=== PATIENT | male | born 1970 | race Caucasian/White ===

== ENCOUNTER 2019-10-30 09:08 | Emergency (ER) | payer BC ==
--- NOTE | 2019-10-30 09:47 | EDM.PDOC ---
ED HPI GENERAL MEDICAL PROBLEM - General Stated Complaint: CHILLS, FEVER Time Seen by Provider: 10/30/19 09:30 Source of Information: Reports: Patient History Limitations: Reports: No Limitations - History of Present Illness INITIAL COMMENTS - FREE TEXT/NARRATIVE: pt comes in ambulatory with c/o dizziness, nausea, chills fever, and gen weakness started this morning after he went golfing, pt report diarrhea this morning and a single episode of emesis, pt denies recent travel or known sick contact, pt report discomfort at left knee and right groin after he finished golfing this morning, pt denies any other associated sx or medical concerns. - Related Data Allergies Allergy/AdvReac Type Severity Reaction Status Date / Time No Known Allergies Allergy Verified 10/30/19 09:24 Home Meds: Home Meds NK [No Known Home Meds] 10/30/19 [History] Past Medical History - Past Surgical History Musculoskeletal Surgical History: Reports: Shoulder Surgery Social & Family History - Family History Family Medical History: Noncontributory - Caffeine Use Caffeine Use: Reports: Coffee, Soda ED ROS GENERAL - Review of Systems Review Of Systems: See Below Constitutional: Reports: Fever, Chills, Fatigue HEENT: Reports: No Symptoms Respiratory: Reports: No Symptoms Cardiovascular: Reports: No Symptoms GI/Abdominal: Reports: Diarrhea, Nausea, Vomiting : Reports: No Symptoms Musculoskeletal: Reports: Back Pain, Joint Pain Skin: Reports: No Symptoms Neurological: Reports: No Symptoms Psychiatric: Reports: No Symptoms ED EXAM, GENERAL - Physical Exam Exam: See Below Exam Limited By: No Limitations General Appearance: Mild Distress Eye Exam: Bilateral Eye: Normal Inspection Ears: Normal External Exam Nose: Normal Inspection, Normal Mucosa Throat/Mouth: Normal Inspection Head: Atraumatic, Normocephalic Neck: Normal Inspection, Supple, Non-Tender Respiratory/Chest: No Respiratory Distress Cardiovascular: Normal Peripheral Pulses, Regular Rate, Rhythm, No Murmur GI/Abdominal: Normal Bowel Sounds, Soft, Non-Tender (Male) Exam: No Hernia, Normal Inspection Back Exam: Normal Inspection Extremities: Normal Inspection, Other (pt has ) Neurological: Alert, Oriented, CN II-XII Intact Skin Exam: Warm, Dry Course - Vital Signs Text/Narrative:: lab reults were explained to pt, pt has CBC at 17 k , but no over signs of infection, he has very mild erythema over the dorsom of right foot and toes, no induration no warmth or other signs of cellulitis , rest of labs are WNL and covid test is neg. pt feels fine after fluids and zofran , ambulatory and feels almost asymptomatic and asking when he can go back to play golf. pt likly has viral illness , supportive mng, rest were recommended i did ask him to follow with his PCP in 2 days for re-check and repeat CBC . Last Recorded V/S: Last Vital Signs Temp 37.3 C 10/30/19 09:08 Pulse 101 H 10/30/19 09:08 Resp 16 10/30/19 09:08 BP 127/73 10/30/19 09:08 Pulse Ox 99 10/30/19 09:08 - Orders/Labs/Meds Orders: Active Orders 24 hr Category Date Time Status Sodium Chloride 0.9% [Normal Saline] 1,000 ml Med 10/30/19 09:50 Active IV .BOLUS Medication Orders Sodium Chloride (Normal Saline) 1,000 mls @ 999 drops/hr IV .BOLUS ONE Stop: 10/31/19 00:50 Last Admin: 10/30/19 10:25 Dose: 999 drops/hr Documented by: ALEXANDER Labs: Laboratory Tests 10/30/19 10/30/19 10/30/19 Range/Units 09:30 09:30 09:32 WBC 17.4 H (4.5-12.0) X10-3/uL RBC 4.78 (4.30-5.75) x10(6)uL Hgb 13.3 L (13.5-17.8) g/dL Hct 40.6 (30.0-51.3) % MCV 84.9 (80-96) fL MCH 27.9 (27.7-33.6) pg MCHC 32.9 (32.2-35.4) g/dL RDW 14.3 (11.5-15.5) % Plt Count 226 (125-369) X10(3)uL Sodium 138 (135-145) mmol/L Potassium 4.2 (3.5-5.3) mmol/L Chloride 103 (100-110) mmol/L Carbon Dioxide 28 (21-32) mmol/L BUN 20 H (7-18) mg/dL Creatinine 1.3 (0.70-1.30) mg/dL Est Cr Clr Drug Dosing 69.49 mL/min Estimated GFR (MDRD) 59 L (>60) BUN/Creatinine Ratio 15.4 (9-20) Glucose 104 (80-116) mg/dL Calcium 8.5 L (8.6-10.2) mg/dL Total Bilirubin 0.5 (0.1-1.3) mg/dL AST 23 D (5-25) IU/L ALT 29 (12-36) U/L Alkaline Phosphatase 62 (56-112) IU/L Total Protein 7.0 (6.0-8.0) g/dL Albumin 3.8 (3.5-5.2) g/dL Globulin 3.2 g/dL Albumin/Globulin Ratio 1.2 Urine Color Yellow (YELLOW) Urine Appearance Clear (CLEAR) Urine pH 6.0 (5.0-6.5) Ur Specific [place] 1.015 (1.010-1.025) Urine Protein Trace (NEGATIVE) mg/dL Urine Glucose (UA) Normal (NORMAL) mg/dL Urine Ketones Negative (NEGATIVE) mg/dL Urine Occult Blood Negative (NEGATIVE) Urine Nitrite Negative (NEGATIVE) Urine Bilirubin Negative (NEGATIVE) Urine Urobilinogen 1 H (NEGATIVE) mg/dL Ur Leukocyte Esterase Negative (NEGATIVE) Urine RBC Not seen (0-5) Urine WBC 0-5 (0-5) Ur Squamous Epith Cells Rare (NS,R,O) Urine Bacteria Rare H (NS) Urine Mucus Moderate H (NS) SARS Virus RNA (PCR) (NEGATIVE) 10/30/19 Range/Units 10:26 WBC (4.5-12.0) X10-3/uL RBC (4.30-5.75) x10(6)uL Hgb (13.5-17.8) g/dL Hct (30.0-51.3) % MCV (80-96) fL MCH (27.7-33.6) pg MCHC (32.2-35.4) g/dL RDW (11.5-15.5) % Plt Count (125-369) X10(3)uL Sodium (135-145) mmol/L Potassium (3.5-5.3) mmol/L Chloride (100-110) mmol/L Carbon Dioxide (21-32) mmol/L BUN (7-18) mg/dL Creatinine (0.70-1.30) mg/dL Est Cr Clr Drug Dosing mL/min Estimated GFR (MDRD) (>60) BUN/Creatinine Ratio (9-20) Glucose (80-116) mg/dL Calcium (8.6-10.2) mg/dL Total Bilirubin (0.1-1.3) mg/dL AST (5-25) IU/L ALT (12-36) U/L Alkaline Phosphatase (56-112) IU/L Total Protein (6.0-8.0) g/dL Albumin (3.5-5.2) g/dL Globulin g/dL Albumin/Globulin Ratio Urine Color (YELLOW) Urine Appearance (CLEAR) Urine pH (5.0-6.5) Ur Specific [place] (1.010-1.025) Urine Protein (NEGATIVE) mg/dL Urine Glucose (UA) (NORMAL) mg/dL Urine Ketones (NEGATIVE) mg/dL Urine Occult Blood (NEGATIVE) Urine Nitrite (NEGATIVE) Urine Bilirubin (NEGATIVE) Urine Urobilinogen (NEGATIVE) mg/dL Ur Leukocyte Esterase (NEGATIVE) Urine RBC (0-5) Urine WBC (0-5) Ur Squamous Epith Cells (NS,R,O) Urine Bacteria (NS) Urine Mucus (NS) SARS Virus RNA (PCR) Negative (NEGATIVE) Meds: Medications Generic Name Dose Route Start Last Admin Trade Name Eyalq PRN Reason Stop Dose Admin Sodium Chloride 1,000 mls @ 999 drops/hr 10/30/19 09:50 10/30/19 10:25 Normal Saline IV 10/31/19 00:50 999 drops/hr .BOLUS ONE Administration Discontinued Medications Generic Name Dose Route Start Last Admin Trade Name Freq PRN Reason Stop Dose Admin Ondansetron HCl 4 mg 10/30/19 09:50 10/30/19 10:25 Zofran IVPUSH 10/30/19 09:51 4 mg ONETIME ONE Administration Departure - Departure Time of Disposition: 12:09 Disposition: Home, Self-Care 01 Clinical Impression: Viral illness - Discharge Information Sepsis Event Note (ED) - Focused Exam Vital Signs: Vital Signs Temp Pulse Resp BP Pulse Ox 10/30/19 09:08 37.3 C 101 H 16 127/73 99 - My Orders Last 24 Hours: My Active Orders 10/30/19 09:50 Sodium Chloride 0.9% [Normal Saline] 1,000 ml IV .BOLUS - Assessment/Plan Last 24 Hours: My Active Orders 10/30/19 09:50 Sodium Chloride 0.9% [Normal Saline] 1,000 ml IV .BOLUS
[2019-10-30] MEDS ORDERED: Ondansetron 4 MG/2 ML SDV IVPUSH ONE (09:50)
[2019-10-30] MEDS ORDERED: Sodium Chloride 0.9% 1,000 ML IV ONE (09:50)
[2019-10-30 10:04] VITALS: BP 127/73; PULSE 101
== END 2019-10-30 12:47 | disposition home or self-care (01) ==
LOC: FB.ED 09:08
DX: B34.9 Viral infection, unspecified (principal); Z20.828 Contact with and (suspected) exposure to other viral communicable diseases
CPT/HCPCS: 36415; 80053; 81001; 85027; 87635; 87804; 96361; 96374; 99284; J2405; J7030; U0002

== ENCOUNTER 2020-02-08 12:05 | Emergency (ER) | payer BC ==
--- NOTE | 2020-02-08 13:40 | EDM.PDOC ---
ED HPI GENERAL MEDICAL PROBLEM - General Stated Complaint: COVID SYMPTOMS Time Seen by Provider: 02/08/20 13:25 Source of Information: Reports: Patient History Limitations: Reports: No Limitations - History of Present Illness INITIAL COMMENTS - FREE TEXT/NARRATIVE: 49-year-old male who reports onset of nasal congestion, scratchy throat and malaise on 01/25/2020. He was tested for coved on 01/27/2020 and the result came back positive. He reports that he has continued with cough, fevers and chills, malaise and body aches. He also has had shortness of breath that is worse with activity and worse with cough. He has an O2 sat probe at home and his O2 saturations have been 90-93% on room air. He apparently developed some nausea with vomiting and Sunday and had a televisions that. He was given a prescription for Zofran and that has helped with his nausea. He presents now because he continues with his symptoms with fevers and chills and he is just not improving. He has had nausea but no vomiting today. He has had cough that has been productive of yellow phlegm he does feel that at times when he is coughing he "gasps for air" but his O2 saturations have not dropped below 90%. He is not really eating well but he has been drinking liquids. He has had no diarrhea. He reports diffuse body aches that he rates as moderate he gets some improvement with ibuprofen and Tylenol. He reports that he has had a daily cycle of developing a fever with chills and then fatigue and feelings of washed out with cough and this seemed to improve towards the afternoon and he is able to take some food and more liquids and then oftentimes through the night he has cough that keeps him up for a good portion. No syncope or presyncope. He does feel somewhat dizzy with standing. There are no other associated signs or symptoms. There are no other modifying factors. Onset: Other (01/25/2020) Duration: Constant Location: Reports: Generalized Quality: Reports: Ache Severity: Moderate Improves with: Reports: Rest Worsens with: Reports: Breathing, Other (Activity) Context: Reports: Other (As above) Associated Symptoms: Reports: Cough, Fever/Chills, Headaches, Malaise, Nausea/Vomiting, Shortness of Breath, Weakness Treatments [employer] SAL[employer]GER: Reports: Acetaminophen, NSAIDS (Ibuprofen) - Related Data Allergies Allergy/AdvReac Type Severity Reaction Status Date / Time No Known Allergies Allergy Verified 02/08/20 12:25 Home Meds: Home Meds Azithromycin [Zithromax] 500 mg PO DAILY 4 Days #4 tab 02/08/20 [Rx] predniSONE [Prednisone] 1 dose PO ASDIRECTED #20 tablet 02/08/20 [Rx] Past Medical History Gastrointestinal History: Reports: GERD Musculoskeletal History: Reports: Gout - Infectious Disease History Infectious Disease History: Reports: None - Past Surgical History Musculoskeletal Surgical History: Reports: Shoulder Surgery Social & Family History - Tobacco Use Tobacco Use Status *Q: Unknown Ever Used Tobacco (Nonsmoker) Tobacco Use Within Last Twelve Months: Smokeless Tobacco - Caffeine Use Caffeine Use: Reports: Coffee, Soda - Alcohol Use Alcohol Use History: Yes Alcohol Use Frequency: Socially - Living Situation & Occupation Occupation: Employed (He is a local mergers and acquisitions attorney.) ED ROS GENERAL - Review of Systems Review Of Systems: See Below Constitutional: Reports: Fever, Chills, Malaise, Weakness, Fatigue HEENT: Reports: Throat Pain, Other (Nasal congestion) Respiratory: Reports: Shortness of Breath, Cough, Sputum Cardiovascular: Reports: Dyspnea on Exertion Endocrine: Reports: Fatigue GI/Abdominal: Reports: Nausea, Vomiting : Reports: No Symptoms Musculoskeletal: Reports: Other (Diffuse body aches) Skin: Reports: No Symptoms Neurological: Reports: Headache Hematologic/Lymphatic: Reports: No Symptoms Immunologic: Reports: No Symptoms ED EXAM, GENERAL - Physical Exam Exam: See Below Exam Limited By: No Limitations General Appearance: Alert, WD/WN, Mild Distress (No respiratory distress. Appears fatigued and with discomfort.) Eye Exam: Bilateral Eye: EOMI, Normal Inspection Ears: Normal External Exam, Hearing Grossly Normal Ear Exam: Bilateral Ear: Auricle Normal Nose: No Blood, Nasal Drainage Throat/Mouth: Normal Voice, No Airway Compromise, Other (Mucous membranes) Head: Atraumatic, Normocephalic Neck: Normal Inspection, Supple, Non-Tender, Full Range of Motion Respiratory/Chest: No Respiratory Distress, Lungs Clear, Normal Breath Sounds, No Accessory Muscle Use, Chest Non-Tender Cardiovascular: Normal Peripheral Pulses, Regular Rate, Rhythm, No Murmur Peripheral Pulses: 2+: Radial (L), Radial (R) GI/Abdominal: Normal Bowel Sounds, Soft, Non-Tender, No Mass Back Exam: Normal Inspection Extremities: Normal Inspection, Normal Range of Motion, Non-Tender, No Pedal Edema, Normal Capillary Refill Neurological: Alert, Oriented, CN II-XII Intact, Normal Cognition, No Motor/Sensory Deficits Skin Exam: Warm, Dry, Intact, Normal Color, No Rash Course - Vital Signs Last Recorded V/S: Last Vital Signs Temp 37.1 C 02/08/20 12:05 Pulse 88 02/08/20 16:00 Resp 16 02/08/20 16:00 BP 122/82 02/08/20 16:00 Pulse Ox 95 02/08/20 16:00 - Orders/Labs/Meds Orders: Active Orders 24 hr Category Date Time Status Chest 2V [CR] Stat Exams 02/08/20 13:44 Taken Peripheral IV Insertion Adult [OM.PC] Routine Oth 02/08/20 13:47 Ordered Labs: Laboratory Tests 02/08/20 02/08/20 02/08/20 Range/Units 13:50 13:50 13:50 WBC 8.9 (3.2-10.1) x10-3/uL RBC 4.25 (3.90-5.90) x10(6)uL Hgb 12.0 L (12.9-17.7) g/dL Hct 35.9 L (38.3-50.1) % MCV 84.4 (80.8-98.7) fL MCH 28.2 (27.0-33.3) pg MCHC 33.5 (28.7-35.3) g/dL RDW 14.2 (12.4-15.0) % Plt Count 243 (117-477) x10(3)uL MPV 8.6 (6.7-11.0) fL Neut % (Auto) 79.1 H (40.3-71.8) % Lymph % (Auto) 8.2 L (15.8-45.3) % [place] % (Auto) 11.3 (5.5-15.2) % Eos % (Auto) 1.1 (0.1-6.8) % Baso % (Auto) 0.3 (0.3-3.8) % Neut # (Auto) 7.1 H (1.7-6.9) x10-3/uL Lymph # (Auto) 0.7 (0.5-4.5) x10-3/uL [place] # (Auto) 1.0 (0.0-1.2) x10-3/uL Eos # (Auto) 0.1 (0.0-0.6) x10-3/uL Baso # (Auto) 0.0 (0.0-0.3) x10-3/uL Sodium 138 (135-145) mmol/L Potassium 4.0 (3.5-5.3) mmol/L Chloride 102 (100-110) mmol/L Carbon Dioxide 26 (21-32) mmol/L BUN 17 (7-18) mg/dL Creatinine 1.1 (0.70-1.30) mg/dL Est Cr Clr Drug Dosing TNP Estimated GFR (MDRD) > 60 (>60) BUN/Creatinine Ratio 15.5 (9-20) Glucose 95 (80-116) mg/dL Calcium 8.5 L (8.6-10.2) mg/dL Magnesium 2.1 (1.8-2.5) mg/dL Total Bilirubin 0.7 (0.1-1.3) mg/dL AST 57 H D (5-25) IU/L ALT 69 H D (12-36) U/L Alkaline Phosphatase 55 L (56-112) IU/L Total Protein 6.8 (6.0-8.0) g/dL Albumin 2.7 L (3.5-5.2) g/dL Globulin 4.1 g/dL Albumin/Globulin Ratio 0.7 Meds: Medications Discontinued Medications Generic Name Dose Route Start Last Admin Trade Name Kimber PRN Reason Stop Dose Admin Azithromycin 500 mg 02/08/20 15:26 02/08/20 16:01 Zithromax PO 02/08/20 15:27 500 mg ONETIME ONE Administration Dexamethasone 8 mg 02/08/20 13:46 02/08/20 14:07 Decadron IVPUSH 02/08/20 13:47 Not Given ONETIME ONE Sodium Chloride 1,000 mls @ 999 mls/hr 02/08/20 13:46 02/08/20 14:03 Normal Saline IV 02/08/20 14:46 999 mls/hr .BOLUS ONE Administration Ondansetron HCl 4 mg 02/08/20 13:50 02/08/20 14:03 Zofran IVPUSH 02/08/20 13:51 4 mg ONETIME ONE Administration Prednisone 60 mg 02/08/20 15:26 02/08/20 16:01 Prednisone PO 02/08/20 15:27 60 mg ONETIME ONE Administration Sodium Chloride 10 ml 02/08/20 13:47 Saline Flush FLUSH ASDIRECTED PRN Keep Vein Open - Radiology Interpretation Free Text/Narrative:: Chest x-ray shows bilateral infiltrates consistent with COVID 19 pneumonia. - Re-Assessments/Exams Free Text/Narrative Re-Assessment/Exam: 02/08/20 13:45: Patient is awake and alert. His O2 saturations 94% on room air. He is in no overt respiratory distress. He does have dry mucous membranes. I will check some chemistries and a CBC and LFTs and I will also check a chest x- ray. I will establish an IV and give him IV normal saline 1 L with Zofran IV. 02/08/20 15:10: Patient has received the reader bolus of normal saline. He feels "about the same". He is still in no overt respiratory distress. The blood work is reassuring. He does have some mild LFT abnormalities that one would expect with a Cob[place] infection. Chest x-ray does show bilateral infiltrates consistent with Covid pneumonia. I will plan on treating the patient with Zithromax 500 mg daily for 5 days and prednisone over 10 days. He should continue to rest, drink plenty of fluids and monitor his O2 saturations as he has been doing at home. Precautions and reasons for return to the emergency department were discussed with the patient and were detailed in his discharge instructions. Departure - Departure Time of Disposition: 15:20 Disposition: Home, Self-Care 01 Condition: Good (Stable) Clinical Impression: Pneumonia due to COVID-19 virus, Dehydration - Discharge Information Prescriptions: predniSONE [Prednisone] 1 dose PO ASDIRECTED #20 tablet Azithromycin [Zithromax] 500 mg PO DAILY 4 Days #4 tab Instructions: COVID-19 Frequently Asked Questions Referrals: PCP,None [Primary Care Provider] - Forms: ED Department Discharge Additional Instructions: Your blood tests did show slight elevation in your liver tests. These elevations are typical with a Covid infection. Your chest x-ray showed evidence of covid pneumonia. Your vital signs including her oxygen saturation were good. I am treating him with Zithromax and prednisone. Continue to rest and drink plenty of fluids. Continue to check your O2 saturations. Back to the emergency department for severe weakness, unrelenting vomiting, worsening breathing, O2 saturations lower than 90% or any other concerning sign or symptom. Sepsis Event Note (ED) - Evaluation Sepsis Screening Result: No Definite Risk - Focused Exam Vital Signs: Vital Signs Pulse Resp BP Pulse Ox 02/08/20 16:00 88 16 122/82 95 - My Orders Last 24 Hours: My Active Orders 02/08/20 13:44 Chest 2V [CR] Stat 02/08/20 13:47 Peripheral IV Insertion Adult [OM.PC] Routine - Assessment/Plan Last 24 Hours: My Active Orders 02/08/20 13:44 Chest 2V [CR] Stat 02/08/20 13:47 Peripheral IV Insertion Adult [OM.PC] Routine
[2020-02-08] MEDS ORDERED: Sodium Chloride 0.9% 1,000 ML IV ONE (13:46)
[2020-02-08] MEDS ORDERED: Dexamethasone 4 MG/ML SDV IVPUSH ONE (13:46)
[2020-02-08] MEDS ORDERED: Sodium Chloride 0.9% 10 ML Syringe FLUSH PRN (13:47)
[2020-02-08] MEDS ORDERED: Ondansetron 4 MG/2 ML SDV IVPUSH ONE (13:50)
[2020-02-08] MEDS ORDERED: Azithromycin 500 MG Tab PO ONE (15:26)
[2020-02-08] MEDS ORDERED: predniSONE 20 MG Tab PO ONE (15:26)
[2020-02-08 21:52] VITALS: BP 122/82; PULSE 88
--- NOTE | 2020-02-09 12:45 | CR ---
INDICATION: Difficult breathing, COVID positive. CHEST TWO VIEWS: Patchy mostly peripheral infiltration is noted bilaterally, but much more extensively on the left in the lower lobe. The appearance would be compatible with COVID-19 - correlate clinically. No definite pleural effusion is seen. The heart is normal in size and shape with mediastinum and bony thorax unremarkable. IMPRESSION: Bilateral pneumonia, much more severe on the left, tends to be peripheral, COVID-19 compatible. MTDD
== END 2020-02-08 16:08 | disposition home or self-care (01) ==
LOC: FB.ED 12:05
DX: U07.1 COVID-19 (principal); J12.89 Other viral pneumonia; E86.0 Dehydration; F17.290 Nicotine dependence, other tobacco product, uncomplicated
CPT/HCPCS: 36415; 71046; 80053; 83735; 85025; 96374; 99285; A9270; J2405; J7030; J7512

== ENCOUNTER 2020-11-02 17:32 | Emergency (ER) | payer BC ==
[2020-11-02] MEDS ORDERED: Ondansetron 4 MG Tab.DIS PO ONE (17:33)
[2020-11-02] MEDS ORDERED: Acetaminophen 500 MG Tab PO STA (18:02)
[2020-11-02] MEDS ORDERED: Ondansetron 4 MG Tab.DIS PO STA (18:02)
[2020-11-02] MEDS ORDERED: Ibuprofen 800 MG Tab PO STA (18:02)
[2020-11-02 18:13] VITALS: BP 133/81; PULSE 112
--- NOTE | 2020-11-02 18:34 | EDM.PDOC ---
ED HPI GENERAL MEDICAL PROBLEM - General Chief Complaint: General Stated Complaint: FEVER, COUGH Time Seen by Provider: 11/02/20 17:55 Source of Information: Reports: Patient History Limitations: Reports: No Limitations - History of Present Illness INITIAL COMMENTS - FREE TEXT/NARRATIVE: Patient presented to the ED because of cough/cold, fever,chills for 1 day. He also has nausea but no vomiting or diarrhea. His tested him at home for Covid which was negative. - Related Data Allergies Allergy/AdvReac Type Severity Reaction Status Date / Time No Known Allergies Allergy Verified 02/08/20 12:25 Home Meds: Home Meds Azithromycin [Zithromax] 500 mg PO DAILY 4 Days #4 tab 02/08/20 [Rx] predniSONE [Prednisone] 1 dose PO ASDIRECTED #20 tablet 02/08/20 [Rx] Past Medical History Gastrointestinal History: Reports: GERD Musculoskeletal History: Reports: Gout Immunologic History: Reports: None Oncologic (Cancer) History: Reports: None - Infectious Disease History Infectious Disease History: Reports: None - Past Surgical History Musculoskeletal Surgical History: Reports: Shoulder Surgery Social & Family History - Family History Family Medical History: No Pertinent Family History - Caffeine Use Caffeine Use: Reports: Coffee, Soda - Living Situation & Occupation Occupation: Employed (He is a local associate attorney.) ED ROS GENERAL - Review of Systems Review Of Systems: See Below Constitutional: Reports: Fever, Chills HEENT: Reports: No Symptoms Respiratory: Reports: No Symptoms, Cough Cardiovascular: Reports: No Symptoms Endocrine: Reports: No Symptoms GI/Abdominal: Reports: No Symptoms : Reports: No Symptoms Skin: Reports: No Symptoms Neurological: Reports: No Symptoms Psychiatric: Reports: No Symptoms ED EXAM, GENERAL - Physical Exam Exam: See Below Exam Limited By: No Limitations General Appearance: Alert, No Apparent Distress Eye Exam: Bilateral Eye: PERRL Ears: Normal External Exam, Normal Canal Nose: Normal Inspection, Normal Mucosa, No Blood Throat/Mouth: Normal Inspection, Normal Lips, Normal Teeth, Normal Gums Head: Atraumatic, Normocephalic Neck: Normal Inspection, Supple, Non-Tender, Full Range of Motion Respiratory/Chest: No Respiratory Distress, Lungs Clear, Normal Breath Sounds, No Accessory Muscle Use, Chest Non-Tender Cardiovascular: Normal Peripheral Pulses, Regular Rate, Rhythm, No Edema, No Gallop, No JVD, No Murmur, No Rub GI/Abdominal: Normal Bowel Sounds, Soft, Non-Tender, No Organomegaly, No Distention, No Abnormal Bruit Back Exam: Normal Inspection, Full Range of Motion Extremities: Normal Inspection, Normal Range of Motion Course - Vital Signs Text/Narrative:: CXR-negative Tylenol 1000 mg PO x1 Ibuprofen 800 mg PO x1 Zofran ODT 4 mg PO x1 Last Recorded V/S: Last Vital Signs Temp 39.3 C H 11/02/20 18:16 Pulse 112 H 11/02/20 18:00 Resp 21 H 11/02/20 18:00 BP 133/81 11/02/20 18:00 Pulse Ox 98 11/02/20 18:00 - Orders/Labs/Meds Orders: Active Orders 24 hr Category Date Time Status Chest 1V Frontal [CR] Stat Exams 11/02/20 18:02 Taken Meds: Medications Discontinued Medications Generic Name Dose Route Start Last Admin Trade Name Eyalq PRN Reason Stop Dose Admin Acetaminophen 1,000 mg 11/02/20 18:02 11/02/20 18:15 Acetaminophen 500 Mg Tab PO 11/02/20 18:03 1,000 mg NOW STA Administration Ibuprofen 800 mg 11/02/20 18:02 11/02/20 18:16 Ibuprofen 800 Mg Tab PO 11/02/20 18:03 800 mg NOW STA Administration Ondansetron HCl 4 mg 11/02/20 18:02 11/02/20 18:15 Ondansetron 4 Mg Tab.Dis PO 11/02/20 18:03 4 mg NOW STA Administration Departure - Departure Time of Disposition: 18:35 Disposition: Home, Self-Care 01 Condition: Good Clinical Impression: URI (upper respiratory infection) - Discharge Information Instructions: Upper Respiratory Infection, Adult, [id number] Referrals: Wilfred Brewer MD [Primary Care Provider] - Additional Instructions: Please read viral URI-upper respiratory infection Drink 2 liters of water daily Take ibuprofen 800 mg with tylenol 1000 mg every 8 hours as needed for pain and fever Zofran ODT 4 mg ever 4 hours as needed for nausea Follow up as needed Sepsis Event Note (ED) - Evaluation Sepsis Screening Result: Possible Severe Sepsis Risk - Focused Exam Vital Signs: Vital Signs Temp Temp Pulse Resp BP Pulse Ox 11/02/20 18:16 39.3 C H 11/02/20 18:00 39.3 C H 112 H 21 H 133/81 98 11/02/20 17:50 39.3 C H 112 H 21 H 133/81 98 - My Orders Last 24 Hours: My Active Orders 11/02/20 18:02 Chest 1V Frontal [CR] Stat - Assessment/Plan Last 24 Hours: My Active Orders 11/02/20 18:02 Chest 1V Frontal [CR] Stat
--- NOTE | 2020-11-03 10:59 | CR ---
CHEST ONE VIEW INDICATION: Cough, fever. AP portable upright view of the chest 11/02/20 was compared with 04/09/19 again revealing the heart to be normal in size and shape. Overlying EKG leads are noted. Mediastinum is unremarkable. Bony structures appeared to be grossly intact. Pulmonary markings are slightly prominent in the lower lung cisse with fairly extensive bronchial wall cuffing suggesting active peribronchial disease and/or fibrosis. However, no gross consolidating pneumonia or effusion was seen - resolution of previous patchy areas of consolidation in the lungs seen on the previous examination is noted. IMPRESSION: Somewhat heavy markings in the lower lung cisse with prominent bronchial wall cuffing - correlate clinically. MTDD
== END 2020-11-02 19:48 | disposition home or self-care (01) ==
LOC: FB.ED 17:32
DX: J06.9 Acute upper respiratory infection, unspecified (principal)
CPT/HCPCS: 71045; 99283; A9270